=== PATIENT | male | born 1995 | race Caucasian/White ===

== ENCOUNTER 2016-08-08 12:21 | Emergency (ER) | payer BC ==
[~2016-08-08] VITALS: Ht 185.4 cm; Wt 73.9 kg
[2016-08-08 14:22] VITALS: BP 122/68
[2016-08-08] MEDS ORDERED: TETRACAINE HCL 0.5% OPTH(EYE) SOLN 2ML LEFTEYE ONE (14:45)
[2016-08-08] MEDS ORDERED: FLUORESCEIN SOD 1 MG TEST STRIP OP ONE (14:45)
[2016-08-08] MEDS ORDERED: TETRACAINE HCL 0.5% OPTH(EYE) SOLN 4ML EACHEYE ONE (15:15)
== END 2016-08-08 15:18 | disposition home or self-care (01) ==
LOC: ER 12:35
DX: T15.02XA Foreign body in cornea, left eye, initial encounter (principal); Z87.821 Personal history of retained foreign body fully removed; Y93.89 Activity, other specified; Y99.8 Other external cause status; Y92.89 Other specified places as the place of occurrence of the external cause
CPT/HCPCS: 65220